=== PATIENT | male | born 1980 | race Caucasian/White ===

== ENCOUNTER 2025-02-17 13:01 | Emergency (ER) | payer BC ==
[2025-02-17] MEDS: Acetaminophen 325 MG Tab PO ONE (13:35)
[2025-02-17] MEDS: Ketorolac 30 MG/ML SDV IM ONE (13:36)
[2025-02-17] MEDS ORDERED: Lidocaine 4% Patch TOP PRN (15:08)
== END 2025-02-17 15:47 | disposition home or self-care (01) ==
LOC: MW.ED 13:01
DX: S83.91XA Sprain of unspecified site of right knee, initial encounter (principal); S83.92XA Sprain of unspecified site of left knee, initial encounter; I10 Essential (primary) hypertension; E11.9 Type 2 diabetes mellitus without complications; Z88.0 Allergy status to penicillin; Z79.84 Long term (current) use of oral hypoglycemic drugs; Z79.899 Other long term (current) drug therapy; X50.1XXA Overexertion from prolonged static or awkward postures, initial encounter; Y93.89 Activity, other specified
CPT/HCPCS: 73562; 93971; 96372; 99284; A9270; J1885; 99282